=== PATIENT | female | born 1990 | race Caucasian/White ===

== ENCOUNTER → 2017-10-07 | Outpatient (CLI) | payer OTHER | LOC: COL.LAB 11:35 | DX: N91.2 Amenorrhea, unspecified (principal) ==

== ENCOUNTER 2021-01-05 08:29 | Emergency (ER) | payer OTHER ==
[~2021-01-05] VITALS: Ht 167.6 cm; Wt 76.4 kg
[~2021-01-05 08:29] MED LIST: FERROUS SU325 MG/TAB PO; PRENATAL VITAMI1 TA5 PO
[2021-01-05 08:40] VITALS: TEMP 98.2
[2021-01-05 09:27] LABS: COLLECTION METHOD CLEAN CATCH
[2021-01-05 09:32] LABS: PH 9 (5-8); SQUAMOUS EPITHELIAL 0-2 /hpf; URINE APPEARANCE Clear; URINE BACTERIA None Seen /hpf; URINE BILIRUBIN Negative (NEGATIVE); URINE BLOOD Negative (NEGATIVE); URINE COLOR Straw; URINE GLUCOSE Negative (NEGATIVE); URINE KETONE Negative (NEGATIVE); URINE LEUKOCYTE ESTERASE Negative (NEGATIVE); URINE NITRATE Negative (NEGATIVE); URINE PROTEIN(semi-quant) Negative (NEGATIVE); URINE RBC 0-2 /hpf; URINE UROBILINOGEN Negative (NEGATIVE)
[2021-01-05 10:13] LABS: BASO # 0.1 (0.0-0.2); BASO % 0.6 % (0.0-2.0); EOS # 0.2 (0.0-0.7); EOS % 1.9 % (0-4.0); GRAN # 6.6 (1.4-6.5); GRAN % 68.6 % (42.2-75.2); HEMATOCRIT 42.4 % (37.0-47.0); HEMOGLOBIN 14.5 g/dl (12.5-16.0); LYMPH # 2.2 (1.2-3.4); LYMPH % 23.4 % (20.0-51.0); MEAN CELL VOLUME 93 fl (80.0-100.0); MEAN CORPUSCULAR HEMOGLOBIN 32 pg (27.0-31.0); MEAN CORPUSCULAR HGB CONC 34 g/dl (33.0-37.0); MONO # 0.5 (0.1-0.6); MONO % 5.2 % (1.7-9.3); PLATELET COUNT 237 K/mm3 (130-400); RED BLOOD COUNT 4.57 M/mm3 (4.10-5.30); REDCELL DISTRIBUTION WIDTH-CV 11.9 % (11.5-14.5)
[2021-01-05 10:23] LABS: ALANINE AMINOTRANSFERASE 10 U/L (4-34); ALBUMIN 4.4 gm/dL (3.5-5.0); ALKALINE PHOSPHATASE 53 U/L (50-136); ANION GAP 6 mmol/L (7-16); AST,SGOT 22 U/L (15-37); BILIRUBIN,TOTAL 0.1 mg/dL (0.0-1.0); BLOOD UREA NITROGEN 7 mg/dL (7-17); CALCIUM 9.4 mg/dL (8.4-10.2); CARBON DIOXIDE 24 mmol/L (22-30); CHLORIDE 107 mmol/L (98-107); CREATININE, serum 0.67 (0.52-1.25); GLUCOSE 96 mg/dL (74-106); SODIUM 137 mmol/L (137-145); TOTAL PROTEIN 7.7 gm/dL (6.4-8.2)
[2021-01-05] MEDS ORDERED: NORCO 325 MG-51 TAB PO (10:55)
[2021-01-05 11:11] VITALS: BP 114/85; PULSE 71
[2021-01-05 11:40] LABS: LIPASE 54 U/L (23-300)
[2021-01-05 11:50] LABS: C-REACTIVE PROTEIN < 0.5 mg/dL (0.0-0.9)
== END 2021-01-05 11:13 | disposition home or self-care (01) ==
LOC: COL.ER 08:29
PROVIDERS: Family Medicine
DX: R10.11 Right upper quadrant pain (principal)
CPT/HCPCS: J1885; J2405; J7120

== ENCOUNTER 2021-04-18 12:34 | Emergency (ER) | payer OTHER ==
[~2021-04-18] VITALS: Ht 167.6 cm; Wt 65.0 kg
[~2021-04-18 12:34] MED LIST changes: +NORCO 325 MG-51 TAB PO
[2021-04-18 12:57] VITALS: TEMP 98.6
[2021-04-18] MEDS ORDERED: CIPRO 250MG TA250 MG PO (13:38)
[2021-04-18] MEDS ORDERED: [UNRECOGNIZED DRUG - OTHER] PO (13:38)
[2021-04-18] MEDS ORDERED: K-TAB20 PO (13:38)
[2021-04-18 13:44] LABS: ALBUMIN 4.8 gm/dL (3.5-5.0); BILIRUBIN,TOTAL 0.4 mg/dL (0.0-1.0); CALCIUM 9.9 mg/dL (8.4-10.2); CREATININE, serum 0.72 (0.52-1.25); POTASSIUM 3.9 mmol/L (3.4-5.0)
[2021-04-18 14:01] LABS: BASO % 0.2 % (0.0-2.0); EOS % 0.4 % (0-4.0); GRAN # 8.2 (1.4-6.5); GRAN % 88.1 % (42.2-75.2); HEMATOCRIT 44.5 % (37.0-47.0); HEMOGLOBIN 15.6 g/dl (12.5-16.0); LYMPH # 0.3 (1.2-3.4); LYMPH % 2.9 % (20.0-51.0); MEAN CELL VOLUME 92 fl (80.0-100.0); MEAN CORPUSCULAR HEMOGLOBIN 32 pg (27.0-31.0); MEAN CORPUSCULAR HGB CONC 35 g/dl (33.0-37.0); MEAN PLATELET VOLUME 10.1 fl (7.4-10.4); MONO # 0.8 (0.1-0.6); PLATELET COUNT 257 K/mm3 (130-400); RED BLOOD COUNT 4.86 M/mm3 (4.10-5.30); REDCELL DISTRIBUTION WIDTH-CV 11.9 % (11.5-14.5)
[2021-04-18 14:03] LABS: TROPONIN-I < 0.012 ng/mL (0.000-0.035)
[2021-04-18 14:23] LABS: COLLECTION METHOD CLEAN CATCH
[2021-04-18 14:28] LABS: THYROID STIMULATING HORMONE 1.858 uIU/mL (0.350-4.940)
[2021-04-18 14:37] LABS: MUCOUS Present /lpf; PH 6 (5-8); SQUAMOUS EPITHELIAL 0-2 /hpf; TRICYCLIC ANTIDEPRESS URINE NEGATIVE; URINE APPEARANCE Hazy; URINE BACTERIA None Seen /hpf; URINE BILIRUBIN Negative (NEGATIVE); URINE BLOOD Negative (NEGATIVE); URINE COLOR Yellow; URINE GLUCOSE Negative (NEGATIVE); URINE KETONE Trace (NEGATIVE); URINE LEUKOCYTE ESTERASE Negative (NEGATIVE); URINE NITRATE Negative (NEGATIVE); URINE PROTEIN(semi-quant) 1+ (NEGATIVE); URINE RBC 0-2 /hpf
[2021-04-18 15:00] VITALS: BP 116/77; PULSE 79
== END 2021-04-18 15:33 | disposition home or self-care (01) ==
LOC: COL.ER 12:34
PROVIDERS: Physician Assistant; Student in an Organized Health Care Education/Training Program
DX: R00.2 Palpitations (principal); R19.7 Diarrhea, unspecified; R07.9 Chest pain, unspecified; F17.210 Nicotine dependence, cigarettes, uncomplicated
CPT/HCPCS: J2060; J7030